=== PATIENT | male | born 1980 | race Caucasian/White ===

== ENCOUNTER → 2017-04-25 | Outpatient (CLI) | payer MEDICAID | LOC: LAB 09:07 | DX: Z13.1 Encounter for screening for diabetes mellitus (principal); Z13.6 Encounter for screening for cardiovascular disorders ==

== ENCOUNTER → 2018-11-25 | Outpatient (CLI) | payer MEDICAID | LOC: LAB 16:39 | DX: B01.9 Varicella without complication (principal) ==

== ENCOUNTER → 2020-04-20 | Outpatient (CLI) | payer MEDICAID ==
[2020-04-20 07:57] LABS: ALBUMIN 4.5 g/dL (3.5-5.0); POTASSIUM 4.4 mmol/L (3.5-5.1)
[2020-04-20 07:58] LABS: CALCIUM 9.9 mg/dL (8.3-10.5)
[2020-04-20 07:59] LABS: TOTAL PROTEIN 7.5 g/dL (6.4-8.3)
[2020-04-20 08:01] LABS: TOTAL BILIRUBIN 0.7 mg/dL (0.2-1.2)
== END ==
LOC: LAB 07:25
PROVIDERS: Family Medicine
DX: Z13.1 Encounter for screening for diabetes mellitus (principal); Z13.6 Encounter for screening for cardiovascular disorders

== ENCOUNTER 2021-03-23 10:53 | Emergency (ER) | payer MEDICAID ==
[2021-03-23] MEDS ORDERED: TYLENOL 8 HOUR650 M1 PO (12:33)
[2021-03-23] MEDS ORDERED: OXCARBAZEPINE150 M1 PO (12:33)
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
== END 2021-03-23 14:05 | disposition short-term general hospital (02) ==
LOC: ED 10:53
DX: T76.21XA Adult sexual abuse, suspected, initial encounter (principal); R56.9 Unspecified convulsions; Z88.1 Allergy status to other antibiotic agents; Z79.899 Other long term (current) drug therapy; X58.XXXA Exposure to other specified factors, initial encounter

== ENCOUNTER → 2021-09-19 | Outpatient (CLI) | payer MEDICAID ==
[~2021-09-19] MED LIST: OXCARBAZEPINE150 M1 PO; TYLENOL 8 HOUR650 M1 PO
== END ==
LOC: LAB 11:23
DX: R05.1 Acute cough (principal); Z20.822 Contact with and (suspected) exposure to COVID-19

== ENCOUNTER → 2021-10-31 | Outpatient (CLI) | payer MEDICAID | LOC: LAB 13:25 | DX: Z20.822 Contact with and (suspected) exposure to COVID-19 (principal) ==

== ENCOUNTER → 2021-12-07 | Outpatient (CLI) | payer MEDICAID | LOC: LAB 14:05 | DX: J06.9 Acute upper respiratory infection, unspecified (principal); Z20.822 Contact with and (suspected) exposure to COVID-19 ==

== ENCOUNTER → 2022-02-25 | Outpatient (CLI) | payer MEDICAID ==
[2022-02-25 11:12] LABS: BASO # 0.03 K/mm3 (0.02-0.10); EOS # 0.17 K/mm3 (0.04-0.40); EOS % 2.4 % (0.0-4.0); HEMOGLOBIN 16.8 g/dL (13.5-18.0); LYMPH# 2.57 K/mm3 (1.50-4.00); MEAN CELL VOLUME 85 fl (78-100); MEAN CORPUSCULAR HEMOGLOBIN 29 pg (27-31); MEAN CORPUSCULAR HGB CONC 34 g/dL (33-37); MEAN PLATELET VOLUME 9.6 fl (7.4-10.4); NEU # 3.55 K/mm3 (1.40-6.50); PLATELET COUNT 266 K/mm3 (130-400); RED BLOOD COUNT 5.87 M/mm3 (4.20-5.60); RED CELL DISTRIBUTION WIDTH 12.9 % (11.5-14.5)
[2022-02-25 11:16] LABS: POTASSIUM 4.2 mmol/L (3.5-5.1)
[2022-02-25 11:17] LABS: ALBUMIN 4.6 g/dL (3.5-5.0)
[2022-02-25 11:18] LABS: CALCIUM 10.2 mg/dL (8.3-10.5)
[2022-02-25 11:19] LABS: TOTAL PROTEIN 7.8 g/dL (6.4-8.3)
== END ==
LOC: LAB 10:09
PROVIDERS: Family Medicine
DX: Z00.00 Encounter for general adult medical examination without abnormal findings (principal); Z13.220 Encounter for screening for lipoid disorders; Z13.1 Encounter for screening for diabetes mellitus; G40.309 Generalized idiopathic epilepsy and epileptic syndromes, not intractable, without status epilepticus; L85.3 Xerosis cutis; H61.23 Impacted cerumen, bilateral; F71 Moderate intellectual disabilities; Z86.61 Personal history of infections of the central nervous system

== ENCOUNTER → 2024-02-04 | Outpatient (CLI) | payer MEDICAID ==
[2024-02-04 12:56] LABS: ALBUMIN 4.4 g/dL (3.5-5.0)
[2024-02-04 12:57] LABS: CALCIUM 10.4 mg/dL (8.3-10.5)
[2024-02-04 12:58] LABS: TOTAL PROTEIN 7.5 g/dL (6.4-8.3)
[2024-02-04 13:00] LABS: TOTAL BILIRUBIN 0.5 mg/dL (0.2-1.2)
[2024-02-04 22:04] LABS: HEPATITIS C VIRUS ANTIBODY Negative (Negative)
== END ==
LOC: LAB 12:16
PROVIDERS: Family Medicine
DX: Z11.4 Encounter for screening for human immunodeficiency virus [HIV] (principal); Z11.59 Encounter for screening for other viral diseases; Z91.89 Other specified personal risk factors, not elsewhere classified